=== PATIENT | female | born 1965 | race Caucasian/White ===

== ENCOUNTER → 2016-11-14 | Outpatient (CLI) | payer BC | LOC: OD 17:38 | PROVIDERS: ATTEND Nurse Practitioner Acute Care | DX: R68.89 Other general symptoms and signs (principal) | CPT/HCPCS: 87804 ==

== ENCOUNTER → 2017-02-26 | Outpatient (CLI) | payer BC ==
[2017-02-26 10:44] LABS: ABSOLUTE BASOPHILS # (AUTO) 0.1 10^3/uL (0.0-0.2); ABSOLUTE EOSINOPHILS # (AUTO) 0.1 10^3/uL (0.0-0.6); ABSOLUTE LYMPHOCYTES (AUTO) 1.4 10^3/uL (0.5-4.7); ABSOLUTE MONOCYTES (AUTO) 0.5 10^3/uL (0.1-1.4); ABSOLUTE NEUT (AUTO) 2.7 10^3/uL (1.7-8.2); BASOPHILS % (AUTO) 1.2 % (0-2); EOSINOPHILS % (AUTO) 2.5 % (0-6); HEMATOCRIT 40.8 % (36.0-47.0); HGB HCT DIFFERENCE 1.2; LYMPHOCYTES % (AUTO) 30.1 % (13-45); MEAN CORPUSCULAR HEMOGLOBIN 32.8 pg (27.0-33.4); MEAN CORPUSCULAR HGB CONC 34.2 g/dL (32.0-36.0); MEAN CORPUSCULAR VOLUME 96 fl (80-97); MONOCYTES % (AUTO) 9.5 % (3-13); RED BLOOD COUNT 4.26 10^6/uL (3.72-5.28); RED CELL DISTRIBUTION WIDTH 12.5 % (11.5-14.0); SEGMENTED NEUTROPHILS % (AUTO) 56.7 % (42-78); WHITE BLOOD COUNT 4.8 10^3/uL (4.0-10.5)
[2017-02-26 11:06] LABS: ALANINE AMINOTRANSFERASE 30 U/L (9-52); ALBUMIN 4.7 g/dL (3.5-5.0); ALKALINE PHOSPHATASE 50 U/L (38-126); ANION GAP 12 (5-19); ASPARTATE AMINO TRANSFERASE 21 U/L (14-36); BILIRUBIN,DIRECT 0.3 mg/dL (0.0-0.4); BILIRUBIN,TOTAL 0.8 mg/dL (0.2-1.3); BLOOD UREA NITROGEN 16 mg/dL (7-20); CALCIUM 9.5 mg/dL (8.4-10.2); CARBON DIOXIDE 25 mmol/L (22-30); CHLORIDE 102 mmol/L (98-107); CHOLESTEROL 242.04 mg/dL (0-200); Direct HDL 82 mg/dL (>40); GLUCOSE 84 mg/dL (75-110); POTASSIUM 4.7 mmol/L (3.6-5.0); SODIUM 139.1 mmol/L (137-145); TOTAL PROTEIN 8.2 g/dL (6.3-8.2); TRIGLYCERIDES 107 mg/dL (<150)
[2017-02-26 11:17] LABS: DIRECT LDL 105 mg/dL (<100)
== END ==
LOC: OD 09:04
PROVIDERS: ATTEND Internal Medicine
DX: I10 Essential (primary) hypertension (principal); E78.5 Hyperlipidemia, unspecified; R53.82 Chronic fatigue, unspecified
CPT/HCPCS: 36415; 80053; 80061; 84443; 85025

== ENCOUNTER → 2017-02-28 | Outpatient (CLI) | payer BC ==
--- NOTE | 2017-02-28 09:07 | WOMENS IMAGING REPORT ---
EXAM DESCRIPTION: U/S PELVIS NON-OB COMPLETED DATE/TIME: 02/28/2017 7:41 am REASON FOR STUDY: N91.2 N91.2 AMENORRHEA, UNSPECIFIED COMPARISON: Multiple since 2007, most recently 02/16/2015 TECHNIQUE: Dynamic and static grayscale images acquired of the pelvis via transabdominal approach an d recorded on PACS. Additional selected color Doppler and spectral images recorded. LIMITATIONS: None. FINDINGS: UTERUS: Contour normal. No mass. Uterus is 8 x 4 x 6 cm in size. ENDOMETRIAL STRIPE: No focal or generalized thickening. No masses. Endometrial stripe 4 mm in thickn ess. CERVIX: No nabothian cysts. RIGHT OVARY: No abnormal masses. Right ovary 2.6 x 2.4 x 2.3 cm in size. RIGHT OVARY DOPPLER: Normal arterial vascular flow without evidence for torsion. LEFT OVARY: No abnormal masses. Left ovary 2.5 x 2.5 x 1.6 cm in size. LEFT OVARY DOPPLER: Normal arterial vascular flow without evidence for torsion. FREE FLUID: None noted. OTHER: No other significant finding. IMPRESSION: NORMAL PELVIC ULTRASOUND BY TRANSABDOMINAL TECHNIQUE. TECHNICAL DOCUMENTATION: JOB ID: [id number] [employer]- All Rights Reserved
== END ==
LOC: WI 06:58
PROVIDERS: ATTEND Specialist
DX: N91.2 Amenorrhea, unspecified (principal)
CPT/HCPCS: 76856

== ENCOUNTER → 2017-08-19 | Outpatient (CLI) | payer BC ==
--- NOTE | 2017-08-19 13:51 | WOMENS IMAGING REPORT ---
EXAM DESCRIPTION: U/S PELVIS NON-OB; TRANSVAGINAL ULTRASOUND; EMPLOYEE COMPLETED DATE/TIME: 08/19/2017 1:26 pm REASON FOR STUDY: MENORRHAGIA COMPARISON: None. TECHNIQUE: Dynamic and static grayscale images acquired of the pelvis via transvaginal approach and recorded on PACS. Additional selected color Doppler and spectral images recorded. LIMITATIONS: None. FINDINGS: UTERUS: Contour normal. No mass. ENDOMETRIAL STRIPE: 15 mm. CERVIX: No nabothian cysts. RIGHT OVARY: 3.4 cm simple appearing cyst. RIGHT OVARY DOPPLER: Normal arterial vascular flow without evidence for torsion. LEFT OVARY: No abnormal masses. LEFT OVARY DOPPLER: Normal arterial vascular flow without evidence for torsion. FREE FLUID: None noted. OTHER: No other significant finding. MEASUREMENTS: UTERUS: 9.5 x 5.0 x 5.3 cm ENDOMETRIAL STRIPE: 15 mm RIGHT OVARY: 2.7 x 2.0 x 2.57 LEFT OVARY: 4.4 x 2.6 x 3.7 cm IMPRESSION: 1. Thickened endometrium for postmenopausal female. 2. 3 cm left ovarian cyst. TECHNICAL DOCUMENTATION: JOB ID: [id number]- All Rights Reserved
== END ==
LOC: WI 12:25
PROVIDERS: ATTEND Obstetrics & Gynecology Gynecology
DX: N92.0 Excessive and frequent menstruation with regular cycle (principal); N83.291 Other ovarian cyst, right side
CPT/HCPCS: 76830; 76856

== ENCOUNTER → 2017-10-15 | Outpatient (CLI) | payer BC ==
--- NOTE | 2017-10-15 16:23 | RADIOLOGY REPORT (SQ) ---
EXAM DESCRIPTION: HYSTERO W/WO COLR FLW DOPPLER COMPLETED DATE/TIME: 10/15/2017 11:34 am REASON FOR STUDY: D COMPARISON: Pelvic ultrasound 08/01/2011, 02/13/2012, 10/29/2013, 02/16/2015, 02/28/2017, 08/19/2017 TECHNIQUE: Dynamic and static grayscale images acquired of the pelvis via transvaginal approach and recorded on PACS. Additional selected color Doppler and spectral images recorded. Initial imaging of the pelvis was performed transvaginally, without a catheter in place. After insertion of a vaginal speculum, a 5 Frenchhysterosalpingogram catheter was placed with the tip in the cervix/lower uterine segment. Speculum removed, and repeat endovaginal ultrasound was perform ed during gentle hand injection of sterile saline into the endometrial canal. Endovaginal scanning was repeated after removal of the hysterosalpingogram catheter. LIMITATIONS: Ovaries not well seen due to adnexal bowel gas FINDINGS: UTERUS: Contour normal. No mass. The uterus measures 8.3 x 4.6 x 3.9 cm in size. ENDOMETRIAL STRIPE and CANAL: Before infusion of saline, the endometrial stripe in total thickness m easures less than 4 mm, with some focal thickening along the leftward fundus up to 8 mm. During infus ion of saline, a a uterine fundal endometrial polyp is identified in the left uterine fundus, 8 x 5 m m in size. CERVIX: No nabothian cysts. RIGHT OVARY: Not well seen RIGHT OVARY DOPPLER: Not performed LEFT OVARY: Not well seen LEFT OVARY DOPPLER: Not performed FREE FLUID: None noted. OTHER: Patient tolerated the procedure well. IMPRESSION: 8 x 5 mm fundal endometrial polyp. TECHNICAL DOCUMENTATION: JOB ID: [id number] [employer]- All Rights Reserved
== END ==
LOC: RAD 10:00
PROVIDERS: ATTEND Obstetrics & Gynecology Gynecology
DX: N83.292 Other ovarian cyst, left side (principal); N84.0 Polyp of corpus uteri
CPT/HCPCS: 76831

== ENCOUNTER → 2017-11-26 | Outpatient (CLI) | payer BC | LOC: OD 15:57 | PROVIDERS: ATTEND Obstetrics & Gynecology | DX: E28.0 Estrogen excess (principal) | CPT/HCPCS: 36415; 82670 ==

== ENCOUNTER → 2017-12-05 | Outpatient (CLI) | payer BC ==
[2017-12-05 08:32] LABS: ABSOLUTE BASOPHILS # (AUTO) 0.1 10^3/uL (0.0-0.2); ABSOLUTE EOSINOPHILS # (AUTO) 0.2 10^3/uL (0.0-0.6); ABSOLUTE LYMPHOCYTES (AUTO) 1.4 10^3/uL (0.5-4.7); ABSOLUTE MONOCYTES (AUTO) 0.6 10^3/uL (0.1-1.4); ABSOLUTE NEUT (AUTO) 3.9 10^3/uL (1.7-8.2); BASOPHILS % (AUTO) 1.1 % (0-2); EOSINOPHILS % (AUTO) 2.7 % (0-6); HEMATOCRIT 43.2 % (36.0-47.0); HEMOGLOBIN 14.7 g/dL (12.0-15.5); LYMPHOCYTES % (AUTO) 22.4 % (13-45); MEAN CORPUSCULAR HEMOGLOBIN 32.6 pg (27.0-33.4); MEAN CORPUSCULAR VOLUME 96 fl (80-97); MONOCYTES % (AUTO) 10.2 % (3-13); PLATELET COUNT 298 10^3/uL (150-450); RED CELL DISTRIBUTION WIDTH 13.5 % (11.5-14.0); SEGMENTED NEUTROPHILS % (AUTO) 63.6 % (42-78); TOTAL CELLS COUNTED % (AUTO) 100 %; WHITE BLOOD COUNT 6.1 10^3/uL (4.0-10.5)
[2017-12-05 08:55] LABS: ALANINE AMINOTRANSFERASE 36 U/L (9-52); ALBUMIN 4.3 g/dL (3.5-5.0); ALKALINE PHOSPHATASE 43 U/L (38-126); ANION GAP 11 (5-19); ASPARTATE AMINO TRANSFERASE 23 U/L (14-36); BILIRUBIN,DIRECT 0.2 mg/dL (0.0-0.4); BILIRUBIN,TOTAL 0.4 mg/dL (0.2-1.3); BLOOD UREA NITROGEN 15 mg/dL (7-20); CALCIUM 9.6 mg/dL (8.4-10.2); CARBON DIOXIDE 28 mmol/L (22-30); CHLORIDE 102 mmol/L (98-107); CHOLESTEROL 235.26 mg/dL (0-200); GLUCOSE 81 mg/dL (75-110); POTASSIUM 4.4 mmol/L (3.6-5.0); TOTAL PROTEIN 7.1 g/dL (6.3-8.2); TRIGLYCERIDES 61 mg/dL (<150)
[2017-12-05 09:06] LABS: DIRECT LDL 113 mg/dL (<100)
== END ==
LOC: OD 08:02
PROVIDERS: ATTEND Internal Medicine
DX: I10 Essential (primary) hypertension (principal); E78.5 Hyperlipidemia, unspecified; E55.9 Vitamin D deficiency, unspecified; R53.82 Chronic fatigue, unspecified
CPT/HCPCS: 36415; 80053; 80061; 82306; 84443; 85025

== ENCOUNTER → 2017-12-11 | Outpatient (CLI) | payer BC ==
--- NOTE | 2017-12-11 09:45 | WOMENS IMAGING REPORT ---
EXAM DESCRIPTION: U/S PELVIS NON-OB; EMPLOYEE COMPLETED DATE/TIME: 12/11/2017 8:28 am REASON FOR STUDY: OVARIAN CYST E28.0 ESTROGEN EXCESS N83.209 UNSPECIFIED OVARIAN CYST, UNSPECIFIED SIDE COMPARISON: 08/19/2017 TECHNIQUE: Dynamic and static grayscale images acquired of the pelvis via transabdominal approach an d recorded on PACS. Additional selected color Doppler and spectral images recorded. LIMITATIONS: None. FINDINGS: UTERUS: Contour normal. No mass. ENDOMETRIAL STRIPE: Chronic thickening. CERVIX: No nabothian cysts. RIGHT OVARY: No abnormal masses. RIGHT OVARY DOPPLER: Normal arterial vascular flow without evidence for torsion. LEFT OVARY: No abnormal masses. LEFT OVARY DOPPLER: Normal arterial vascular flow without evidence for torsion. FREE FLUID: None noted. OTHER: No other significant finding. MEASUREMENTS: UTERUS: 10.3 x 5.0 x 6.1 cm ENDOMETRIAL STRIPE: 15 mm RIGHT OVARY: 2.7 x 1.6 x 2.1 cm LEFT OVARY: 3.1 x 2.5 x 3.1 cm IMPRESSION: Thickened endometrium. No significant change. TECHNICAL DOCUMENTATION: JOB ID: [id number] [employer]- All Rights Reserved Reading location - IP/workstation name: [email or web address]
--- NOTE | 2017-12-11 09:45 | WOMENS IMAGING REPORT ---
EXAM DESCRIPTION: U/S PELVIS NON-OB; EMPLOYEE COMPLETED DATE/TIME: 12/11/2017 8:28 am REASON FOR STUDY: OVARIAN CYST E28.0 ESTROGEN EXCESS N83.209 UNSPECIFIED OVARIAN CYST, UNSPECIFIED SIDE COMPARISON: 08/19/2017 TECHNIQUE: Dynamic and static grayscale images acquired of the pelvis via transabdominal approach an d recorded on PACS. Additional selected color Doppler and spectral images recorded. LIMITATIONS: None. FINDINGS: UTERUS: Contour normal. No mass. ENDOMETRIAL STRIPE: Chronic thickening. CERVIX: No nabothian cysts. RIGHT OVARY: No abnormal masses. RIGHT OVARY DOPPLER: Normal arterial vascular flow without evidence for torsion. LEFT OVARY: No abnormal masses. LEFT OVARY DOPPLER: Normal arterial vascular flow without evidence for torsion. FREE FLUID: None noted. OTHER: No other significant finding. MEASUREMENTS: UTERUS: 10.3 x 5.0 x 6.1 cm ENDOMETRIAL STRIPE: 15 mm RIGHT OVARY: 2.7 x 1.6 x 2.1 cm LEFT OVARY: 3.1 x 2.5 x 3.1 cm IMPRESSION: Thickened endometrium. No significant change. TECHNICAL DOCUMENTATION: JOB ID: [id number] [employer]- All Rights Reserved Reading location - IP/workstation name: [email or web address]
== END ==
LOC: RAD 07:36
PROVIDERS: ATTEND Obstetrics & Gynecology
DX: E28.0 Estrogen excess (principal); N83.209 Unspecified ovarian cyst, unspecified side
CPT/HCPCS: 76856

== ENCOUNTER → 2018-04-21 | Outpatient (CLI) | payer BC ==
--- NOTE | 2018-04-21 18:29 | RADIOLOGY REPORT (SQ) ---
EXAM DESCRIPTION: CHEST 2 VIEWS COMPLETED DATE/TIME: 04/21/2018 6:18 pm REASON FOR STUDY: URI, BRONCHITIS COMPARISON: 12/27/2014 EXAM PARAMETERS: NUMBER OF VIEWS: two views TECHNIQUE: Digital Frontal and Lateral radiographic views of the chest acquired. RADIATION DOSE: NA LIMITATIONS: none FINDINGS: LUNGS AND PLEURA: No opacities, masses or pneumothorax. No pleural effusion. MEDIASTINUM AND HILAR STRUCTURES: No masses or contour abnormalities. HEART AND VASCULAR STRUCTURES: Heart normal size. No evidence for failure. BONES: No acute findings. HARDWARE: None in the chest. OTHER: No other significant finding. IMPRESSION: NO ACUTE RADIOGRAPHIC FINDING IN THE CHEST. TECHNICAL DOCUMENTATION: JOB ID: [id number] [employer]- All Rights Reserved Reading location - IP/workstation name: [email or web address]
== END ==
LOC: RAD 17:54
PROVIDERS: ATTEND Internal Medicine
DX: J06.9 Acute upper respiratory infection, unspecified (principal); J20.9 Acute bronchitis, unspecified
CPT/HCPCS: 71046

== ENCOUNTER 2018-06-05 08:11 | Emergency (ER) | payer BC ==
--- NOTE | 2018-06-05 08:20 | ER Document Report ---
HPI - HPI Patient complains to provider of: left knee injury Onset: This morning Onset/Duration: Sudden Severity: Mild Pain Level: 2 Context: pt reports she slipped and fell on the edge of her bathtub this morning while getting out of the shower. Reports she cracked the tub when she fell. denies change in LOC, denies feeling dizzy. no other c/o such as f/n/v/d. Pt was able to walk immediately afterwards, reports pain with movement. Small lac ~ 2cm vertical to anterior knee, no active bleeding. Pt cleaned site with peroxide. Associated Symptoms: None Exacerbated by: Movement Relieved by: Remaining still Similar symptoms previously: No Recently seen / treated by doctor: No - REPRODUCTIVE Reproductive: DENIES: : Past Medical History - General Information source: Patient Last Menstrual Period: 01/13/18 - Social History Smoking Status: Never Smoker Cigarette use (# per day): No Frequency of alcohol use: Social Drug Abuse: None Occupation: [employer] Lives with: Family Family History: CAD - mom- stent, Malignancy - dad Patient has suicidal ideation: No Patient has homicidal ideation: No - Past Medical History Cardiac Medical History: Reports: Hx Hypertension Denies: Hx Coronary Artery Disease, Hx Heart Attack Pulmonary Medical History: Denies: Hx Asthma, Hx Bronchitis, Hx COPD, Hx Pneumonia Neurological Medical History: Denies: Hx Cerebrovascular Accident, Hx Seizures Musculoskeletal Medical History: Denies Hx Arthritis Traumatic Medical History: Reports: Hx Fractures - foot Past Surgical History: Reports: Hx Gynecologic Surgery, Hx Orthopedic Surgery. Denies: Hx Hysterectomy - Immunizations Hx Diphtheria, Pertussis, Tetanus Vaccination: Yes Vertical Provider Document - CONSTITUTIONAL Agree With Documented VS: Yes Exam Limitations: No Limitations General Appearance: WD/WN, No Apparent Distress - INFECTION CONTROL TRAVEL OUTSIDE OF THE [place] IN LAST 30 DAYS: No - HEENT HEENT: Atraumatic, Normocephalic - NECK Neck: Supple - RESPIRATORY Respiratory: No Respiratory Distress - CARDIOVASCULAR Cardiovascular: Regular Rate - MUSCULOSKELETAL/EXTREMETIES Musculoskeletal/Extremeties: MAEW, FROM, Tender - left knee - NEURO Level of Consciousness: Awake, Alert, Appropriate Motor/Sensory: No Motor Deficit - DERM Integumentary: Warm, Dry, Laceration - small 2 cm superficial Adult Front & Back Diagram: 1 - 2 cm superficial scratch Course - Re-evaluation Re-evalutation: 06/05/18 08:49 ice pack provided, bandaid applied, pt took own tylenol. pt instructed on R/I/ E. She verbalized understanding. 06/05/18 09:06 pt instructed on neg X-Ray - Diagnostic Test Radiology reviewed: Reports reviewed Discharge - Discharge Clinical Impression: Left knee injury Qualifiers: Encounter type: initial encounter Qualified Code(s): S89.92XA - Unspecified injury of left lower leg, initial encounter Condition: Stable Disposition: HOME, SELF-CARE Instructions: Use of Ppkt-Rzv-Yrcqosd Ibuprofen ([facility]), Ice & Elevation ([facility]) Additional Instructions: *You have been evaluated for left knee injury *Rest/Ice/Elevate your knee *Follow up with orthopedics for continued pain-call for an appointment *Take ibuprofen or tylenol as indicated for pain *Return to ED for worsening condition, changes, needs Referrals: JOAN HELMS MD [NO LOCAL MD] - Follow up in 3-5 days
[2018-06-05 08:27] VITALS: BP 134/93
--- NOTE | 2018-06-05 08:47 | RADIOLOGY REPORT (SQ) ---
EXAM DESCRIPTION: KNEE RIGHT 3 VIEWS COMPLETED DATE/TIME: 06/05/2018 8:28 am REASON FOR STUDY: fell onto knee COMPARISON: None. NUMBER OF VIEWS: Three views. TECHNIQUE: AP, lateral, and both oblique radiographic images acquired of the right knee. LIMITATIONS: None. FINDINGS: MINERALIZATION: Normal. BONES: No acute fracture or dislocation. No worrisome bone lesions. JOINT: No effusion. SOFT TISSUES: No soft tissue swelling. No radio-opaque foreign body. OTHER: No other significant finding. IMPRESSION: 1. NEGATIVE STUDY OF THE RIGHT KNEE. TECHNICAL DOCUMENTATION: JOB ID: [id number] [employer]- All Rights Reserved Reading location - IP/workstation name: [email or web address]
== END 2018-06-05 08:50 | disposition home or self-care (01) ==
LOC: ER 08:11
DX: S89.92XA Unspecified injury of left lower leg, initial encounter (principal); W18.2XXA Fall in (into) shower or empty bathtub, initial encounter; Y92.002 Bathroom of unspecified non-institutional (private) residence as the place of occurrence of the external cause; I10 Essential (primary) hypertension
CPT/HCPCS: 99283

== ENCOUNTER → 2019-05-06 | Outpatient (CLI) | payer BC ==
[2019-05-06 08:46] LABS: ABSOLUTE BASOPHILS # (AUTO) 0.1 10^3/uL (0.0-0.2); ABSOLUTE EOSINOPHILS # (AUTO) 0.1 10^3/uL (0.0-0.6); ABSOLUTE LYMPHOCYTES (AUTO) 1.3 10^3/uL (0.5-4.7); ABSOLUTE MONOCYTES (AUTO) 0.5 10^3/uL (0.1-1.4); ABSOLUTE NEUT (AUTO) 2.8 10^3/uL (1.7-8.2); BASOPHILS % (AUTO) 1.1 % (0-2); EOSINOPHILS % (AUTO) 2.6 % (0-6); HEMATOCRIT 38.6 % (36.0-47.0); HEMOGLOBIN 13.2 g/dL (12.0-15.5); LYMPHOCYTES % (AUTO) 27.4 % (13-45); MEAN CORPUSCULAR HEMOGLOBIN 32.7 pg (27.0-33.4); MEAN CORPUSCULAR HGB CONC 34.2 g/dL (32.0-36.0); MEAN CORPUSCULAR VOLUME 96 fl (80-97); MONOCYTES % (AUTO) 9.7 % (3-13); PLATELET COUNT 274 10^3/uL (150-450); RED BLOOD COUNT 4.04 10^6/uL (3.72-5.28); RED CELL DISTRIBUTION WIDTH 13.1 % (11.5-14.0); SEGMENTED NEUTROPHILS % (AUTO) 59.2 % (42-78); TOTAL CELLS COUNTED % (AUTO) 100 %; WHITE BLOOD COUNT 4.7 10^3/uL (4.0-10.5)
[2019-05-06 10:06] LABS: CHOLESTEROL 247.87 mg/dL (0-200); DIRECT LDL 133 mg/dL (<100); TRIGLYCERIDES 79 mg/dL (<150); VLDL CHOLESTEROL 15.8 mg/dL (10-31)
[2019-05-06 15:17] LABS: ALBUMIN 4.4 g/dL (3.5-5.0); ALKALINE PHOSPHATASE 44 U/L (38-126); ANION GAP 7 (5-19); ASPARTATE AMINO TRANSFERASE 22 U/L (14-36); BILIRUBIN,DIRECT 0.1 mg/dL (0.0-0.4); BILIRUBIN,TOTAL 0.5 mg/dL (0.2-1.3); BLOOD UREA NITROGEN 20 mg/dL (7-20); CALCIUM 9.5 mg/dL (8.4-10.2); CARBON DIOXIDE 29 mmol/L (22-30); CHLORIDE 102 mmol/L (98-107); GLUCOSE 84 mg/dL (75-110); POTASSIUM 4.5 mmol/L (3.6-5.0); TOTAL PROTEIN 7.3 g/dL (6.3-8.2)
== END ==
LOC: OD 08:06
PROVIDERS: ATTEND Internal Medicine
DX: Z00.00 Encounter for general adult medical examination without abnormal findings (principal); R53.83 Other fatigue
CPT/HCPCS: 36415; 80053; 80061; 82306; 82607; 83540; 84443; 85025; 87070

== ENCOUNTER → 2019-07-21 | Outpatient (CLI) | payer BC ==
--- NOTE | 2019-07-21 11:10 | RADIOLOGY REPORT (SQ) ---
EXAM DESCRIPTION: CT ABD/PELVIS NO ORAL OR IV COMPLETED DATE/TIME: 07/21/2019 10:35 am REASON FOR STUDY: (R10.9)UNSPECIFIED ABDOMINAL PAIN R10.9 UNSPECIFIED ABDOMINAL PAIN R07.81 PLEURO DYNIA COMPARISON: None. TECHNIQUE: CT scan of the abdomen and pelvis performed without intravenous or oral contrast. Images reviewed with lung, soft tissue, and bone windows. Reconstructed coronal and sagittal MPR images revi ewed. All images stored on PACS. All CT scanners at this facility use dose modulation, iterative reconstruction, and/or weight based d osing when appropriate to reduce radiation dose to as low as reasonably achievable (ALARA). [facility]: Dose Right [facility]: CareDose [facility]: Dose Right [facility]: Teradose 4D [facility]: Diaspora RADIATION DOSE: mGy. LIMITATIONS: None. FINDINGS: LOWER CHEST: No significant findings. No nodules or infiltrates. NON-CONTRASTED LIVER, SPLEEN, ADRENALS: Evaluation limited by lack of IV contrast. No identified sign ificant masses. PANCREAS: No masses. No peripancreatic inflammatory changes. GALLBLADDER: No identified stones by CT criteria. No inflammatory changes to suggest cholecystitis. RIGHT KIDNEY AND URETER: No suspicious masses. Assessment limited by lack of IV contrast. Cannot ex clude a 4 mm calculus in the distal ureter on image 61. Mild right hydronephrosis/ hydroureter. LEFT KIDNEY AND URETER: No suspicious masses. Assessment limited by lack of IV contrast. No signifi cant calcifications. No hydronephrosis or hydroureter. AORTA AND RETROPERITONEUM: No aneurysm. No retroperitoneal masses or adenopathy. BOWEL AND PERITONEAL CAVITY: Mild sigmoid diverticulosis with no associated inflammation. APPENDIX: Normal. PELVIS, BLADDER, AND ABDOMINAL WALL:Bladder normal. No masses or fluid collections. Multiple phlebo liths are present. BONES: Mild anterolisthesis of L4. OTHER: No other significant finding. IMPRESSION: Mild right hydronephrosis/ hydroureter. Possible 4 mm calculus in the distal ureter. A nterolisthesis of L4 on L5. Diverticulosis coli. COMMENT: Quality ID # [id number]: Final reports with documentation of one or more dose reduction techniques (e.g., Automated exposure control, adjustment of the mA and/or kV according to patient size, use of iterative reconstruction technique) TECHNICAL DOCUMENTATION: JOB ID: [id number]- All Rights Reserved Reading location - IP/workstation name: [email or web address]
--- NOTE | 2019-07-21 11:44 | RADIOLOGY REPORT (SQ) ---
EXAM DESCRIPTION: T SPINE AP/LAT COMPLETED DATE/TIME: 07/21/2019 11:35 am REASON FOR STUDY: LOWER RIB/THORACIC PAIN R10.9 UNSPECIFIED ABDOMINAL PAIN R07.81 PLEURODYNIA COMPARISON: None. NUMBER OF VIEWS: Two views. TECHNIQUE: AP and lateral radiographic images acquired of the thoracic spine. LIMITATIONS: None. FINDINGS: MINERALIZATION: Normal. ALIGNMENT: Normal. No scoliosis. VERTEBRAE: No fracture or bone lesion. Maintained height, normal segmentation. DISCS: No significant loss of height or significant narrowing. No large osteophytes. HARDWARE: None in the spine. MEDIASTINUM AND SOFT TISSUES: Normal heart size and aortic contour. No soft tissue abnormality. VISUALIZED LUNG URIBE: Clear. OTHER: No other significant finding. IMPRESSION: NO SIGNIFICANT RADIOGRAPHIC FINDING IN THE THORACIC SPINE. TECHNICAL DOCUMENTATION: JOB ID: [id number] [employer]- All Rights Reserved Reading location - IP/workstation name: [email or web address]
--- NOTE | 2019-07-21 11:47 | RADIOLOGY REPORT (SQ) ---
EXAM DESCRIPTION: RIBS LEFT W/O PA CHEST COMPLETED DATE/TIME: 07/21/2019 11:35 am REASON FOR STUDY: LOWER RIB/THORACIC PAIN R10.9 UNSPECIFIED ABDOMINAL PAIN R07.81 PLEURODYNIA COMPARISON: Same day CT NUMBER OF VIEWS: 3 TECHNIQUE: Images acquired of the left ribs in the area of focal concern. LIMITATIONS: None. FINDINGS: RIBS: No acute displaced fracture. No worrisome bone lesions. LUNGS: Limited exam. No obvious pneumothorax. No pleural effusion. OTHER: No other significant finding. IMPRESSION: No pneumothorax. No displaced rib fracture. COMMENT: SITE OF TRAUMA/COMPLAINT MARKED/STAMP COMPLETED: NO. TECHNICAL DOCUMENTATION: JOB ID: [id number] [employer]- All Rights Reserved Reading location - IP/workstation name: [email or web address]
== END ==
LOC: RAD 10:19
PROVIDERS: ATTEND Internal Medicine
DX: R10.9 Unspecified abdominal pain (principal); R07.81 Pleurodynia
CPT/HCPCS: 72070; 74176

== ENCOUNTER → 2020-03-22 | Outpatient (CLI) | payer BC ==
--- NOTE | 2020-03-22 16:53 | RADIOLOGY REPORT (SQ) ---
EXAM DESCRIPTION: HAND LEFT 3 VIEWS IMAGES COMPLETED DATE/TIME: 03/22/2020 4:21 pm REASON FOR STUDY: INJURY, UNSPECIFIED, INITIAL ENCOUNTER,SEE ORDER [id number] INJURY, UNSPECIFIED, IN ITIAL ENCOUNTER COMPARISON: None. EXAM PARAMETERS: NUMBER OF VIEWS: Three views. TECHNIQUE: AP, lateral and oblique radiographic images acquired of the left hand. LIMITATIONS: None. FINDINGS: MINERALIZATION: Normal. BONES: No acute fracture or dislocation. No worrisome bone lesions. JOINTS: No effusions. SOFT TISSUES: 3rd finger PIP joint soft tissue swelling. No foreign body. OTHER: No other significant finding. IMPRESSION: 3rd finger PIP joint swelling. No fracture or malalignment TECHNICAL DOCUMENTATION: JOB ID: [id number] [employer]- All Rights Reserved Reading location - IP/workstation name: [email or web address]
== END ==
LOC: OD 16:02
PROVIDERS: ATTEND Family Medicine Geriatric Medicine
DX: T14.90XA Injury, unspecified, initial encounter (principal); X58.XXXA Exposure to other specified factors, initial encounter

== ENCOUNTER → 2020-05-16 | Outpatient (CLI) | payer BC ==
[2020-05-16 08:38] LABS: ABSOLUTE EOSINOPHILS # (AUTO) 0.2 10^3/uL (0.0-0.6); ABSOLUTE LYMPHOCYTES (AUTO) 1.4 10^3/uL (0.5-4.7); ABSOLUTE MONOCYTES (AUTO) 0.6 10^3/uL (0.1-1.4); ABSOLUTE NEUT (AUTO) 2.3 10^3/uL (1.7-8.2); EOSINOPHILS % (AUTO) 4.7 % (0-6); HEMATOCRIT 35.5 % (36.0-47.0); HEMOGLOBIN 12.4 g/dL (12.0-15.5); LYMPHOCYTES % (AUTO) 30.3 % (13-45); MEAN CORPUSCULAR HEMOGLOBIN 32.6 pg (27.0-33.4); MEAN CORPUSCULAR HGB CONC 34.9 g/dL (32.0-36.0); MEAN CORPUSCULAR VOLUME 93 fl (80-97); MONOCYTES % (AUTO) 12.9 % (3-13); PLATELET COUNT 266 10^3/uL (150-450); RED CELL DISTRIBUTION WIDTH 13.1 % (11.5-14.0); SEGMENTED NEUTROPHILS % (AUTO) 51.1 % (42-78); TOTAL CELLS COUNTED % (AUTO) 100 %; WHITE BLOOD COUNT 4.5 10^3/uL (4.0-10.5)
[2020-05-16 09:04] LABS: ALBUMIN 4.2 g/dL (3.5-5.0); ALKALINE PHOSPHATASE 52 U/L (38-126); ANION GAP 8 (5-19); ASPARTATE AMINO TRANSFERASE 26 U/L (14-36); BILIRUBIN,DIRECT 0.2 mg/dL (0.0-0.4); BILIRUBIN,TOTAL 0.5 mg/dL (0.2-1.3); BLOOD UREA NITROGEN 17 mg/dL (7-20); CALCIUM 9.3 mg/dL (8.4-10.2); CARBON DIOXIDE 28 mmol/L (22-30); CHLORIDE 102 mmol/L (98-107); CHOLESTEROL 228.63 mg/dL (0-200); GLUCOSE 92 mg/dL (75-110); POTASSIUM 4.3 mmol/L (3.6-5.0); TOTAL PROTEIN 6.8 g/dL (6.3-8.2); TRIGLYCERIDES 101 mg/dL (<150)
[2020-05-16 09:14] LABS: DIRECT LDL 112 mg/dL (<100)
== END ==
LOC: OD 07:40
PROVIDERS: ATTEND Internal Medicine
DX: E55.9 Vitamin D deficiency, unspecified (principal)
CPT/HCPCS: 36415; 80053; 80061; 82306; 84443; 85025

== ENCOUNTER → 2020-09-02 | Outpatient (CLI) | payer BC ==
[~2020-09-02] MED LIST: COVID-19 VACCINE (PFIZER)/PF 30 MCG/0.3 ML VIAL IM ONE; EPINEPHRINE INJ/PF 1 MG/1 ML AMPULE IM PRN
== END ==
LOC: EMPHEALTH 08:50
PROVIDERS: ATTEND Internal Medicine
DX: Z23 Encounter for immunization (principal)
CPT/HCPCS: 91300

== ENCOUNTER → 2020-09-23 | Outpatient (CLI) | payer BC | LOC: EMPHEALTH 09:06 | PROVIDERS: ATTEND Internal Medicine | DX: Z23 Encounter for immunization (principal) | CPT/HCPCS: 91300 ==